=== PATIENT | male | born 2000 | race Two or more races ===

== ENCOUNTER 2023-07-18 18:24 | Emergency (ER) | payer MEDICAID, OTHER ==
[~2023-07-18] VITALS: Ht 172.7 cm; Wt 62.4 kg
[2023-07-18 20:17] VITALS: BP 138/95; PULSE 98; RESP 19; TEMP 98.9; O2SAT 98
[2023-07-18] MEDS ORDERED: ACET500T58 PO ×2 (21:07)
== END 2023-07-18 22:03 | disposition left against medical advice (07) ==
LOC: ER 18:24
DX: S02.2XXA Fracture of nasal bones, initial encounter for closed fracture (principal); S63.694A Other sprain of right ring finger, initial encounter; S00.83XA Contusion of other part of head, initial encounter; Z79.899 Other long term (current) drug therapy; V89.9XXA Person injured in unspecified vehicle accident, initial encounter; Y93.55 Activity, bike riding; Y92.89 Other specified places as the place of occurrence of the external cause; Y99.8 Other external cause status
CPT/HCPCS: 29130; 70450; 70486; 72125; 73130